=== PATIENT | female | born 1930 | race Asian ===

== ENCOUNTER 2019-01-22 23:32 | Emergency (ER) | payer OTHER ==
[~2019-01-22] VITALS: Ht 152.4 cm; Wt 61.4 kg
[2019-01-22] MEDS ORDERED: SOD CHLORIDE 0.9% 1,000 ML IV STA (23:37)
[2019-01-22 23:38] VITALS: Ht 152.4 cm; Wt 61.4 kg
--- NOTE | 2019-01-23 02:53 | ERD ---
ER Documentation Chief Complaint Chief Complaint BIB [facility] from home: mid-sternal 8/10 CP. STEMI run HPI This is an 88-year-old female brought in by rescue from home with complaint of midsternal 8 out of 10 chest pain. Patient was a STEMI pre-notification, however upon arrival EKG was reviewed and showed no evidence of STEMI. Repeat EKG here showed no evidence of STEMI as well. Chest pain per the patient is substernal, nonexertional positional no exacerbating alleviating factors, mild to moderate intensity. Mild associated nausea but no vomiting. Mild associated shortness of breath but no diaphoresis. ROS All systems reviewed and are negative except as per history of present illness. Allergies Allergies: Coded Allergies: No Known Allergy (Unverified , 01/22/19) PMhx/Soc Medical and Surgical Hx: Unable to obtain Hx Cardiac Disorders: Yes (HTN, cholesterol) Hx Miscellaneous Medical Probl: Yes (gastritis) Hx Alcohol Use: No Hx Substance Use: No Hx Tobacco Use: No Smoking Status: Never smoker Physical Exam Vitals Vital Signs Date Temp Pulse Resp B/P (MAP) Pulse Ox O2 O2 Flow FiO2 Time Delivery Rate 01/23/19 99.0 86 16 125/63 96 Room Air 2.0 02:04 (83) 86 01/23/19 99.1 77 12 128/75 100 Room Air 2.0 01:18 (92) 01/22/19 75 14 129/73 100 Nasal 2.0 23:50 (91) Cannula 01/22/19 Nasal 2 23:40 Cannula 01/22/19 99.3 79 14 145/88 96 23:38 (107) Physical Exam Const: No acute distress Head: Atraumatic Eyes: Normal Conjunctiva ENT: Normal External Ears, Nose and Mouth. Neck: Full range of motion. No meningismus. Resp: Clear to auscultation bilaterally Cardio: Regular rate and rhythm, no murmurs Abd: Soft, non tender, non distended. Normal bowel sounds Skin: No petechiae or rashes Back: No midline or flank tenderness Ext: No cyanosis, or edema Neur: Awake and alert Psych: Normal Mood and Affect Result Diagram: 01/22/19 2340 01/22/19 2340 Results 24 hrs Laboratory Tests Test 01/22/19 23:39 01/22/19 23:40 Bedside Glucose 90 mg/dL White Blood Count 5.0 10^3/ul Red Blood Count 4.45 10^6/ul Hemoglobin 13.0 g/dl Hematocrit 39.6 % Mean Corpuscular Volume 89.0 fl Mean Corpuscular Hemoglobin 29.2 pg Mean Corpuscular Hemoglobin Concent 32.8 g/dl Red Cell Distribution Width 13.1 % Platelet Count 175 10^3/UL Mean Platelet Volume 10.2 fl Immature Granulocytes % 0.600 % Neutrophils % 32.1 % Lymphocytes % 51.2 % Monocytes % 13.9 % Eosinophils % 1.6 % Basophils % 0.6 % Nucleated Red Blood Cells % 0.0 /100WBC Immature Granulocytes # 0.030 10^3/ul Neutrophils # 1.6 10^3/ul Lymphocytes # 2.6 10^3/ul Monocytes # 0.7 10^3/ul Eosinophils # 0.1 10^3/ul Basophils # 0.0 10^3/ul Nucleated Red Blood Cells # 0.0 10^3/ul Prothrombin Time 12.6 Sec Prothrombin Time Ratio 1.0 INR International Normalized Ratio 0.93 Activated Partial Thromboplast Time 31.5 Sec Sodium Level 140 mmol/L Potassium Level 4.2 mmol/L Chloride Level 98 mmol/L Carbon Dioxide Level 28 mmol/L Anion Gap 14 Blood Urea Nitrogen 12 mg/dl Creatinine 0.55 mg/dl Est Glomerular Filtrat Rate mL/min mL/min Glucose Level 107 mg/dl Calcium Level 9.4 mg/dl Total Bilirubin 0.3 mg/dl Direct Bilirubin 0.00 mg/dl Indirect Bilirubin 0.3 mg/dl Aspartate Amino Transf (AST/SGOT) 35 IU/L Alanine Aminotransferase (ALT/SGPT) 28 IU/L Alkaline Phosphatase 135 IU/L Troponin I < 0.012 ng/ml B-Type Natriuretic Peptide 759 PG/ML Total Protein 7.6 g/dl Albumin 3.9 g/dl Globulin 3.70 g/dl Albumin/Globulin Ratio 1.05 Current Medications Medications Dose Sig/Irene Start Time Status Last (Trade) Ordered Route PRN Stop Time Admin Dose Reason Admin Sodium 1,000 ml @ Q1H STAT 01/22/19 DC 01/22/19 Chloride 1,000 mls/hr IV 23:37 23:53 01/23/19 00:36 Procedures/MDM EKG: Rate/Rhythm: [Normal Sinus Rhythm] QRS, ST, T-waves: [No changes consistent w/ acute ischemia] Impression: [No evidence of ischemia or arrhythmia] Chest X-ray 1V Interpreted by me: Soft Tissue: No acute abnormalities Bones: No acute abnormalities Mediastinum/Cardiac Silhouette/Lungs: [No acute abnormalities] Patient's symptoms are concerning for cardiac cause will require inpatient workup and continuous monitoring. Further w/u for ischemia, arrhythmia, PE or dissection will be deferred to the inpatient team. Patient is capitated to [facility]. [facility] will accept the patient to [facility]. Accepting Care Team: Current data and ongoing care discussed. Time: 11 PM Primary Provider: Ag [facility] Consulting: Deferred to [facility] Outstanding Data: none Departure Diagnosis: Primary Impression: Chest pain Chest pain type: unspecified Qualified Codes: R07.9 - Chest pain, unsp ecified Condition: Serious DREA SCHUMACHER Jan 23, 2019 02:53
[2019-01-23 03:20] VITALS: BP 139/66; PULSE 74; RESP 20
== END 2019-01-23 03:27 | disposition short-term general hospital (02) ==
LOC: E/R 23:32
DX: R07.89 Other chest pain (principal); I10 Essential (primary) hypertension
CPT/HCPCS: 36415; 71045; 80053; 82962; 83880; 84484; 85025; 85610; 85730; 93005; 96360; 96361; 99285; J7030